=== PATIENT | male | born 1970 | race Two or more races ===

== ENCOUNTER 2018-01-03 15:06 | Emergency (ER) | payer SELFPAY ==
[~2018-01-03] VITALS: Ht 162.6 cm; Wt 81.8 kg
[2018-01-03 15:45] VITALS: Ht 162.6 cm; Wt 81.8 kg
[2018-01-03] MEDS ORDERED: FLAGYL500 MG PO (17:27)
[2018-01-03 18:09] LABS: APPEARANCE CLEAR (CLEAR); BILIRUBIN NEGATIVE (NEGATIVE); COLOR YELLOW (YELLOW); GLUCOSE NEGATIVE (NEGATIVE); KETONE NEGATIVE (NEGATIVE); NITRITE NEGATIVE (NEGATIVE); PROTEIN NEGATIVE (NEGATIVE); UROBILINOGEN NORMAL (NORMAL)
[2018-01-03 19:00] VITALS: BP 140/86
== END 2018-01-03 19:03 | disposition home or self-care (01) ==
LOC: D.ER 15:06
PROVIDERS: Family Medicine
DX: Z20.2 Contact with and (suspected) exposure to infections with a predominantly sexual mode of transmission (principal)